=== PATIENT | male | born 1990 | race Two or more races ===

== ENCOUNTER 2017-03-03 16:19 | Emergency (ER) | payer OTHER ==
[~2017-03-03] VITALS: Ht 177.8 cm; Wt 77.1 kg
[2017-03-03] MEDS ORDERED: ASPirin 325 MG TAB PO ONE (16:45)
[2017-03-03 18:30] VITALS: BP 132/82
== END 2017-03-03 18:31 | disposition home or self-care (01) ==
LOC: ER 16:19 → EDBD 16:19 → ER 18:31
DX: F41.9 Anxiety disorder, unspecified (principal); F17.210 Nicotine dependence, cigarettes, uncomplicated; F12.10 Cannabis abuse, uncomplicated; F15.10 Other stimulant abuse, uncomplicated
CPT/HCPCS: 71010; 80307; 93005